=== PATIENT | female | born 1945 | race Caucasian/White ===

== ENCOUNTER 2020-08-15 12:40 | Outpatient (CLI) | payer MEDICARE ==
--- NOTE | 2020-08-15 15:07 | MRI ---
MRI lumbar spine noncontrast: HISTORY: Claudication. Low back pain radiating down both legs. COMPARISON: Prior MRI performed in [place], not available FINDINGS: Appropriate T1 marrow signal intensity of the lumbar vertebrae. Lumbar spine vertebral body heights a re maintained. There is no evidence of fracture. There is intrinsic T1 and T2 hyperintensity along the left aspect of L3 compatible with a osseous hemangioma. No significant STIR hyperintensity to sug gest vertebral body edema from fracture. No evidence of ligamentous injury. Appropriate signal intensity visualized paraspinal muscles. There is mild bilateral renal cortical atrophy, left greater than right. Conus medullaris terminates at the mid T12 level. Spondylolisthesis: 4 mm of anterolisthesis of L3 upon L4 5.9 mm anterolisthesis of L4 upon L5 No associated spondylolysis. T12-L1:No significant central canal stenosis or significant neural foraminal narrowing L1-L2:Adequate disc hydration. No significant loss of disc space height. No posterior disc abnormalit y. No significant central canal stenosis or significant neural foraminal narrowing L2-L3:Disc desiccation without significant loss of disc space height. Broad-based disc bulge, ligamen t flavum thickening and facet hypertrophy. Mild central canal stenosis. Mild right and [id number] left neural foraminal narrowing L3-L4:Adequate disc hydration. No significant loss of disc space height. Broad-based disc bulge, liga mentum flavum thickening and facet hypertrophy result in moderate central canal stenosis. Mild to moderate bilateral neural foraminal narrowing L4-L5:Disc desiccation with mild loss of disc space height. Broad-based disc bulge, ligament flavum t hickening and facet hypertrophy result in moderate central canal stenosis. There is fluid in bilateral facet joints. Moderate to severe right and mild left neural foraminal narrowing L5-S1:No significant central canal stenosis. Patent bilateral neural foramina IMPRESSION: Multilevel degenerative changes of the lumbar spine as described above. Transcribed Date/Time: 08/15/2020 3:30 PM
--- NOTE | 2020-08-15 15:14 | ULT ---
BILATERAL CAROTID DOPPLER ULTRASOUND: 08/15/20 HISTORY: TIA. TECHNIQUE: [place]ao scale ultrasound with color flow and spectral Doppler imaging of the extracranial carotid artery system is performed bilaterally. FINDINGS: There is no significant plaque formation or intimal wall thickening. The peak systolic velocity in the right ICA measures 50 cm/s with an end diastolic velocity of 11 cm/ s and systolic ratio of 0.96. The peak systolic velocity in the left ICA measures 79 cm/s with an end diastolic velocity of 34 cm/s and systolic ratio of 1.02. Flow in both vertebral arteries remains antegrade. IMPRESSION: No evidence of hemodynamically significant stenosis in either ICA. POS: AH
== END 2020-08-15 12:41 | disposition home or self-care (01) ==
LOC: BICULT 12:40
PROVIDERS: ATTEND Psychiatry & Neurology Neurology
DX: G45.9 Transient cerebral ischemic attack, unspecified (principal); R09.89 Other specified symptoms and signs involving the circulatory and respiratory systems; M47.816 Spondylosis without myelopathy or radiculopathy, lumbar region
CPT/HCPCS: 72148; 93880

== ENCOUNTER 2021-07-02 10:05 | Outpatient (CLI) | payer MEDICARE | END 2021-07-02 10:06 | disposition home or self-care (01) | LOC: BICULT 10:05 | PROVIDERS: ATTEND Internal Medicine Gastroenterology | DX: K21.9 Gastro-esophageal reflux disease without esophagitis (principal); R63.4 Abnormal weight loss; R10.10 Upper abdominal pain, unspecified; Z12.11 Encounter for screening for malignant neoplasm of colon; K76.0 Fatty (change of) liver, not elsewhere classified | CPT/HCPCS: 76700 ==

== ENCOUNTER 2021-07-03 09:54 | Outpatient (CLI) | payer MEDICARE ==
[2021-07-03] MEDS ORDERED: Iopamidol-370 76% 500 ML 1 ML ONE (15:11)
== END 2021-07-03 09:55 | disposition home or self-care (01) ==
LOC: BICCT 09:54
PROVIDERS: ATTEND Internal Medicine Gastroenterology
DX: K21.9 Gastro-esophageal reflux disease without esophagitis (principal); R10.10 Upper abdominal pain, unspecified
CPT/HCPCS: 74160; 82565; Q9967

== ENCOUNTER 2022-03-30 13:23 | Outpatient (CLI) | payer MEDICARE ==
[2022-03-30 14:43] LABS: Bilirubin Neg (Negative); Blood, Urine 250 (Negative); Clarity Clear (Clear); Glucose, Urine (Dipstick) Normal (Negative); Ketone, Urine Negative (Negative); Leukocyte 100 (Negative); Nitrite Negative (Negative); Protein, Urine (Dipstick) 30 mg/dl (Neg-Trace); Urobilinogen Normal mg/dL (Less than 2)
[2022-03-30 14:55] LABS: Bacteria/HPF 4+ HPF (None Seen); Calcium Oxalate Crystals 4+ HPF (None Seen); Squamous Epithelial 0-3 HPF (0-3)
== END 2022-03-30 13:24 | disposition home or self-care (01) ==
LOC: LABBT 13:23
PROVIDERS: ATTEND Urology
DX: Z01.818 Encounter for other preprocedural examination (principal); N20.0 Calculus of kidney; Z20.822 Contact with and (suspected) exposure to COVID-19
CPT/HCPCS: 80048; 81001; 85027; 85610; 85730; 86850; 86900; 86901; 86920; 87086; 93005; U0003; U0005; 93010

== ENCOUNTER 2022-04-01 05:38 | Day surgery (SDC) | payer MEDICARE ==
[2022-03-30 12:03] VITALS: BMI 25.7
[2022-03-30 14:50] LABS: Mean Corpuscular HGB CONC 32.6 g/dL (32.0-36.0); Mean Corpuscular Hemoglobin 28.2 pg (27.0-33.0); Mean Corpuscular Volume 86.5 fl (81.6-98.3); Mean Platelet Volume 9.5 fl (7.4-10.4); Platelet Count 220 10x3/uL (150-450); RBC Distribution Width 13.5 % (11.5-14.5); Red Blood Cell (RBC) Count 4.96 10x6/uL (3.90-5.03)
[2022-03-30 14:57] LABS: INR-International Normal Ratio 0.9; PTT 24.7 sec (22.0-33.0); Prothrombin Time 10.3 sec (9.5-12.1)
[2022-03-30 15:09] LABS: Anion Gap 14 mmol/L (10-20); BUN (Urea Nitrogen) 20 mg/dL (9.8-20.1); Calc. Creatinine Clearance 0 mL/min (70-130); Calcium 9.9 mg/dL (7.8-10.44); Carbon Dioxide 26 mmol/L (23-31); Chloride 108 mmol/L (98-107); Glucose 110 mg/dL (83-110); Sodium 144 mmol/L (136-145)
[2022-04-01] MEDS ORDERED: Gentamicin Sulfate 100 MG in Premix Bag 1 BAG IVPB SCH (06:30)
[2022-04-01] MEDS ORDERED: Midazolam HCl 2 mg/2 ml Vial ONE (07:05)
[2022-04-01] MEDS ORDERED: fentaNYL Citrate/PF 100 MCG/2 ML SYRINGE ONE (07:05)
[2022-04-01] MEDS ORDERED: Famotidine/PF 20 mg/2ml Vial ONE (07:06)
[2022-04-01] MEDS ORDERED: HYDROmorphone 0.5 MG/0.5 ML SYRINGE ONE (07:06)
[2022-04-01] MEDS ORDERED: Sodium Chloride 0.9% 100 ML ONE (07:33)
[2022-04-01] MEDS ORDERED: CEFAZOLIN 2 GM VIAL ONE (07:33)
[2022-04-01] MEDS ORDERED: Ioversol 68 % 50 ML VIAL ONE (08:27)
[2022-04-01] MEDS ORDERED: EPINEPHrine 1 MG/ML AMP ONE (09:13)
[2022-04-01] MEDS ORDERED: Bupivacaine PF 0.5% 30 ML VIAL ONE (09:13)
== END 2022-04-01 15:13 | disposition home or self-care (01) ==
LOC: SDC 05:38
PROVIDERS: ATTEND Urology
PROC: 0TC44ZZ Extirpation of Matter from Left Kidney Pelvis, Percutaneous Endoscopic Approach (ICD-10-PCS; principal; 2022-04-01)
DX: N20.0 Calculus of kidney (principal); N12 Tubulo-interstitial nephritis, not specified as acute or chronic; K21.9 Gastro-esophageal reflux disease without esophagitis; Z79.899 Other long term (current) drug therapy
CPT/HCPCS: 50081; 76000; 80048; 82365; 85027; 85610; 85730; 86850; 86900; 86901; 86920; C2617; U0003; U0005; 88300; J0171; J0690; J1170; J1580; J2250; J3490; J7620; Q9967; S0020; S0028

== ENCOUNTER 2022-04-16 12:19 | Outpatient (CLI) | payer MEDICARE | END 2022-04-16 12:20 | disposition home or self-care (01) | LOC: BICCT 12:19 | PROVIDERS: ATTEND Urology | DX: N20.0 Calculus of kidney (principal); K44.9 Diaphragmatic hernia without obstruction or gangrene; N26.1 Atrophy of kidney (terminal); Z90.710 Acquired absence of both cervix and uterus; Z90.49 Acquired absence of other specified parts of digestive tract; Z96.0 Presence of urogenital implants | CPT/HCPCS: 74176 ==

== ENCOUNTER 2022-06-22 12:02 | Outpatient (CLI) | payer MEDICARE | END 2022-06-22 12:03 | disposition home or self-care (01) | LOC: BICULT 12:02 | PROVIDERS: ATTEND Urology | DX: N20.0 Calculus of kidney (principal) | CPT/HCPCS: 76770 ==

== ENCOUNTER 2023-02-24 13:26 | Outpatient (CLI) | payer MEDICARE | END 2023-02-24 13:27 | disposition home or self-care (01) | LOC: BICMAMMO 13:26 | PROVIDERS: ATTEND Family Medicine | DX: Z12.31 Encounter for screening mammogram for malignant neoplasm of breast (principal) | CPT/HCPCS: 77063; 77067 ==